=== PATIENT | male | born 1940 | race American Indian/Alaskan Native ===

== ENCOUNTER 2017-05-21 09:36 | Emergency (ER) | payer MEDICARE ==
[~2017-05-21 09:36] MED LIST: ASPI-1005 PO; CHOL100018 PO; COQ PO; GABA-531 PO; LOSA50TA37 PO; METO-408 PO; OMEG-108 PO; SIMV40TA59 PO; VITAMIN B 12 PO; [UNRECOGNIZED DRUG - OTHER] PO
[2017-05-21 10:03] LABS: BASOPHILS % (AUTO) 0.6 % (0.0-5.0); HEMATOCRIT 44.5 % (42-54); LYMPHOCYTES % (AUTO) 18.5 % (21.0-51.0); MEAN CORPUSCULAR HEMOGLOBIN 29.1 pg (27.0-33.0); MEAN CORPUSCULAR HGB CONC 33.9 g/dL (32.0-36.0); MEAN CORPUSCULAR VOLUME 85.8 fL (79-99); MONOCYTES % (AUTO) 9.9 % (3.0-13.0); PLATELET COUNT (AUTO) 231 K/uL (130-400); RED BLOOD CELL COUNT(AUTO) 5.19 MIL/uL (4.50-6.20); WHITE BLOOD COUNT (AUTO) 7.8 K/uL (4.8-10.8)
[2017-05-21 10:10] LABS: CREATININE 1.4 mg/dL (0.5-1.5); POTASSIUM 3.9 mmol/L (3.5-5.1)
[2017-05-21 10:12] LABS: INR 0.95 (0.85-1.15)
[2017-05-21 10:14] LABS: ALBUMIN 3.9 g/dL (3.5-5.0); BILIRUBIN,TOTAL 0.7 mg/dL (0.2-1.0); TOTAL PROTEIN, SERUM 7.6 g/dL (6.0-8.3)
[2017-05-21] MEDS ORDERED: HYDRALAZINE HCL 20 MG/ML VIAL ONE (10:30)
[2017-05-21 10:38] LABS: RAPID GROUP A STREP NEGATIVE (NEGATIVE)
[2017-05-21 10:44] LABS: APPEARANCE,URINE CLEAR (CLEAR); BILIRUBIN,URINE NEGATIVE (NEGATIVE); COLOR,URINE YELLOW (YELLOW); GLUCOSE, URINE (UA) NEGATIVE (NEGATIVE); KETONES,URINE NEGATIVE (NEGATIVE); LEUKOCYTE ESTERASE ,URINE NEGATIVE (NEGATIVE); NITRATE,URINE NEGATIVE (NEGATIVE); OCCULT BLOOD,URINE NEGATIVE (NEGATIVE); PH,URINE 6.5 (5.0-8.0); PROTEIN,URINE NEGATIVE (NEGATIVE); UROBILINOGEN,URINE 0.2 mg/dL (0.2-1.0)
[2017-05-21 11:09] LABS: B-TYPE NATRIURETIC PEPTIDE 38 pg/mL (0-100)
== END 2017-05-21 12:31 | disposition home or self-care (01) ==
LOC: EDH 09:36
DX: M94.0 Chondrocostal junction syndrome [Tietze] (principal); R07.89 Other chest pain; F41.9 Anxiety disorder, unspecified; I10 Essential (primary) hypertension; I25.810 Atherosclerosis of coronary artery bypass graft(s) without angina pectoris; E78.00 Pure hypercholesterolemia, unspecified; Z79.899 Other long term (current) drug therapy; Z95.1 Presence of aortocoronary bypass graft; Z87.891 Personal history of nicotine dependence; Z98.890 Other specified postprocedural states
CPT/HCPCS: 36415; 71045; 80053; 81003; 83605; 83690; 83880; 84484 ×2; 85025; 85610; 85730; 87804 ×2; 87880; 93005; 96374; 99285; J0360

== ENCOUNTER → 2018-02-13 | Outpatient (CLI) | payer MEDICARE ==
[~2018-02-13] MED LIST changes: +LOSA50TA25 PO; -LOSA50TA37 PO
== END | disposition home or self-care (01) ==
LOC: RAH 08:39
PROVIDERS: ATTEND Internal Medicine Endocrinology, Diabetes & Metabolism
DX: E04.2 Nontoxic multinodular goiter (principal); Z72.89 Other problems related to lifestyle
CPT/HCPCS: 76536

== ENCOUNTER → 2018-05-10 | Outpatient (CLI) | payer MEDICARE ==
[~2018-05-10] MED LIST changes: -LOSA50TA25 PO; +LOSA50TA64 PO
== END | disposition home or self-care (01) ==
LOC: RAH 07:34
PROVIDERS: ATTEND Family Medicine
DX: I12.9 Hypertensive chronic kidney disease with stage 1 through stage 4 chronic kidney disease, or unspecified chronic kidney disease (principal); N18.3 Chronic kidney disease, stage 3 (moderate); N28.1 Cyst of kidney, acquired
CPT/HCPCS: 76770; 93975

== ENCOUNTER → 2019-02-28 | Outpatient (CLI) | payer MEDICARE | END | disposition home or self-care (01) | LOC: SHCH 11:23 | PROVIDERS: ATTEND Internal Medicine Cardiovascular Disease | DX: I08.0 Rheumatic disorders of both mitral and aortic valves (principal); R01.1 Cardiac murmur, unspecified | CPT/HCPCS: 93306 ==

== ENCOUNTER → 2019-03-02 | Outpatient (CLI) | payer MEDICARE | END | disposition home or self-care (01) | LOC: SHCH 12:39 | PROVIDERS: ATTEND Internal Medicine Cardiovascular Disease | DX: I65.23 Occlusion and stenosis of bilateral carotid arteries (principal); I73.9 Peripheral vascular disease, unspecified | CPT/HCPCS: 93880; 93925 ==

== ENCOUNTER → 2020-03-11 | Outpatient (CLI) | payer MEDICARE | END | disposition home or self-care (01) | LOC: SHCH 11:22 | PROVIDERS: ATTEND Internal Medicine Cardiovascular Disease | DX: I51.7 Cardiomegaly (principal); I35.0 Nonrheumatic aortic (valve) stenosis | CPT/HCPCS: 93306; 93356 ==

== ENCOUNTER → 2020-03-13 | Outpatient (CLI) | payer MEDICARE ==
[~2020-03-13] MED LIST changes: +REGADENOSON 0.4 MG/5 ML PF SYG IVP SCH
== END | disposition home or self-care (01) ==
LOC: SHCH 08:29
PROVIDERS: ATTEND Internal Medicine Cardiovascular Disease
DX: I10 Essential (primary) hypertension (principal); I25.810 Atherosclerosis of coronary artery bypass graft(s) without angina pectoris
CPT/HCPCS: 78452; 93017; 96374; A9500 ×2; J2785

== ENCOUNTER → 2021-04-21 | Outpatient (CLI) | payer MEDICARE ==
[~2021-04-21] MED LIST changes: -REGADENOSON 0.4 MG/5 ML PF SYG IVP SCH
== END | disposition home or self-care (01) ==
LOC: SHCH 10:48
PROVIDERS: ATTEND Internal Medicine Cardiovascular Disease
DX: I08.0 Rheumatic disorders of both mitral and aortic valves (principal); I11.9 Hypertensive heart disease without heart failure; E78.5 Hyperlipidemia, unspecified; Z95.1 Presence of aortocoronary bypass graft
CPT/HCPCS: 93306

== ENCOUNTER → 2022-08-07 | Outpatient (CLI) | payer MEDICARE ==
[~2022-08-07] MED LIST changes: +REGADENOSON 0.4 MG/5 ML PF SYG IVP SCH
== END | disposition home or self-care (01) ==
LOC: SHCH 10:41
PROVIDERS: ATTEND Internal Medicine Cardiovascular Disease
DX: I35.0 Nonrheumatic aortic (valve) stenosis (principal); I11.9 Hypertensive heart disease without heart failure; I25.119 Atherosclerotic heart disease of native coronary artery with unspecified angina pectoris
CPT/HCPCS: 93306

== ENCOUNTER → 2022-08-10 | Outpatient (CLI) | payer MEDICARE ==
[~2022-08-10] MED LIST changes: +REGADENOSON 0.4 MG/5 ML PF SYG IVP ONE; -REGADENOSON 0.4 MG/5 ML PF SYG IVP SCH
== END | disposition home or self-care (01) ==
LOC: SHCH 07:34
PROVIDERS: ATTEND Internal Medicine Cardiovascular Disease
DX: I25.119 Atherosclerotic heart disease of native coronary artery with unspecified angina pectoris (principal)
CPT/HCPCS: 78452; 96374; 93017; J2785; A9500 ×2

== ENCOUNTER → 2023-07-25 | Outpatient (CLI) | payer MEDICARE ==
[~2023-07-25] MED LIST changes: -REGADENOSON 0.4 MG/5 ML PF SYG IVP ONE
== END | disposition home or self-care (01) ==
LOC: SHCH 10:28
PROVIDERS: ATTEND Internal Medicine Cardiovascular Disease
DX: I08.0 Rheumatic disorders of both mitral and aortic valves (principal); R06.00 Dyspnea, unspecified; I48.91 Unspecified atrial fibrillation
CPT/HCPCS: 93306

== ENCOUNTER → 2023-07-27 | Outpatient (CLI) | payer MEDICARE | END | disposition home or self-care (01) | LOC: SHCH 10:29 | PROVIDERS: ATTEND Internal Medicine Cardiovascular Disease | DX: I70.203 Unspecified atherosclerosis of native arteries of extremities, bilateral legs (principal); I65.23 Occlusion and stenosis of bilateral carotid arteries; R09.89 Other specified symptoms and signs involving the circulatory and respiratory systems; I25.10 Atherosclerotic heart disease of native coronary artery without angina pectoris; R07.89 Other chest pain; I10 Essential (primary) hypertension; E78.5 Hyperlipidemia, unspecified; R06.00 Dyspnea, unspecified; R06.02 Shortness of breath | CPT/HCPCS: 93880; 93925 ==

== ENCOUNTER → 2023-08-10 | Outpatient (CLI) | payer MEDICARE ==
[~2023-08-10] VITALS: Ht 177.8 cm; Wt 93.4 kg
[~2023-08-10] MED LIST changes: +ASPI-1197 PO; +CYAN-106 PO; +FAMO-136 PO; +METO25TA6 PO; +OMEG100033 PO; +SIMV-46 PO; +UBID200C18 PO; +VITAMIN D3 PO
[2023-08-10 10:33] LABS: BASOPHILS # (AUTO) 0.07 K/uL (0.00-0.20); BASOPHILS % (AUTO) 0.8 % (0.0-5.0); EOSINOPHILS # (AUTO) 0.58 K/uL (0.00-0.70); EOSINOPHILS % (AUTO) 6.6 % (0.0-8.0); HEMATOCRIT 45.9 % (42-54); IMMATURE GRANULOCYTE ABSOLUTE 0.04 K/uL (0-1); LYMPHOCYTES # (AUTO) 1.3 K/uL (1.0-4.8); LYMPHOCYTES % (AUTO) 14.9 % (21.0-51.0); MEAN CORPUSCULAR HEMOGLOBIN 27.8 pg (27.0-33.0); MEAN CORPUSCULAR HGB CONC 32.2 g/dL (32.0-36.0); MEAN CORPUSCULAR VOLUME 86.3 fL (79-99); MONOCYTES % (AUTO) 11.7 % (3.0-13.0); NEUTROPHILS # (AUTO) 5.7 K/uL (1.8-7.7); NEUTROPHILS % (AUTO) 65.5 % (40.0-77.0); PLATELET COUNT (AUTO) 325 K/uL (130-400); RED BLOOD CELL COUNT(AUTO) 5.32 MIL/uL (4.50-6.20); RED CELL DISTRIBUTION WIDTH 14.6 % (11.0-15.5); WHITE BLOOD COUNT (AUTO) 8.8 K/uL (4.8-10.8)
[2023-08-10 10:42] LABS: APPEARANCE,URINE CLEAR (CLEAR); BILIRUBIN,URINE NEGATIVE (NEGATIVE); COLOR,URINE YELLOW (YELLOW); GLUCOSE, URINE (UA) NEGATIVE (NEGATIVE); KETONES,URINE NEGATIVE (NEGATIVE); LEUKOCYTE ESTERASE ,URINE 75 Leu/uL (NEGATIVE); NITRATE,URINE 2+ (NEGATIVE); OCCULT BLOOD,URINE NEGATIVE (NEGATIVE); PROTEIN,URINE NEGATIVE (NEGATIVE); UROBILINOGEN,URINE 0.2 mg/dL (0.2-1.0)
[2023-08-10 10:43] LABS: INR 0.95 (0.85-1.15); PROTHROMBIN TIME 11.2 SEC (9.6-11.6)
[2023-08-10 10:44] LABS: CREATININE 1.4 mg/dL (0.5-1.3); POTASSIUM 4.2 mmol/L (3.5-5.1)
[2023-08-10 10:45] VITALS: BP 182/90; PULSE 71; RESP 18
[2023-08-10 10:45] LABS: PARTIAL THROMBOPLASTIN TIME 29.6 SEC (26.3-35.5)
[2023-08-10 10:46] LABS: ADD UA MICROSCOPIC YES
[2023-08-10 10:50] LABS: BACTERIA,URINE RARE /HPF (None Seen); MUCUS,URINE RARE LPF (None Seen); SQUAMOUS EPITHELIAL CELL,UR RARE /HPF (0-2)
[2023-08-10 11:09] LABS: B-TYPE NATRIURETIC PEPTIDE 139 pg/mL (0-100)
== END | disposition home or self-care (01) ==
LOC: EDSTATUS 09:00 → DAH 10:00
PROVIDERS: ATTEND Internal Medicine Cardiovascular Disease
DX: Z01.818 Encounter for other preprocedural examination (principal); I25.10 Atherosclerotic heart disease of native coronary artery without angina pectoris; I49.1 Atrial premature depolarization; R00.1 Bradycardia, unspecified; I48.91 Unspecified atrial fibrillation; Z79.899 Other long term (current) drug therapy
CPT/HCPCS: 36415; 71045; 80048; 81001; 83880; 85025; 85610; 85730; 87088; 93005

== ENCOUNTER → 2023-08-18 | Outpatient (CLI) | payer MEDICARE ==
[~2023-08-18] MED LIST changes: -ASPI-1005 PO; -CHOL100018 PO; -COQ PO; -GABA-531 PO; +IOHEXOL 350 MG/ML 100ML INFUS..BTL IV ONE; -METO-408 PO; -OMEG-108 PO; -SIMV40TA59 PO; -VITAMIN B 12 PO
== END | disposition home or self-care (01) ==
LOC: RAH 11:22
PROVIDERS: ATTEND Family Medicine
DX: R91.8 Other nonspecific abnormal finding of lung field (principal); I25.10 Atherosclerotic heart disease of native coronary artery without angina pectoris; J44.9 Chronic obstructive pulmonary disease, unspecified; M47.815 Spondylosis without myelopathy or radiculopathy, thoracolumbar region; M21.70 Unequal limb length (acquired), unspecified site; Z90.49 Acquired absence of other specified parts of digestive tract; C34.90 Malignant neoplasm of unspecified part of unspecified bronchus or lung; M79.661 Pain in right lower leg
CPT/HCPCS: 71270; 93971; Q9967

== ENCOUNTER → 2024-07-13 | Outpatient (CLI) | payer MEDICARE ==
[~2024-07-13] MED LIST changes: -IOHEXOL 350 MG/ML 100ML INFUS..BTL IV ONE
== END | disposition home or self-care (01) ==
LOC: SHCH 13:08
PROVIDERS: ATTEND Internal Medicine Cardiovascular Disease
DX: I87.2 Venous insufficiency (chronic) (peripheral) (principal); R60.9 Edema, unspecified
CPT/HCPCS: 93970

== ENCOUNTER 2024-08-11 09:51 | Emergency (ER) | payer MEDICARE ==
[~2024-08-11] VITALS: Ht 177.8 cm; Wt 86.2 kg
[2024-08-11] MEDS: TETRACAINE HCL 0.5% 4 ML OPHTH SOLN OP ONE (10:24)
[2024-08-11] MEDS: acetaMINOPHEN 500 MG TABLET PO ONE (10:30)
--- NOTE | 2024-08-11 10:51 | NUR ---
administered franca lens to the left eye to perform irrigation. patient tolerated well. at bedside.
[2024-08-11] MEDS ORDERED: MOXI3DRO12 OP (11:22)
--- NOTE | 2024-08-11 11:22 | ERN ---
General Chief Complaint: Eye Problems Stated Complaint: EYE PAIN Time Seen by MD: 10:05 Source: patient History of Present Illness Initial Comments THIS IS A AN 84-YEAR-OLD MALE COMING IN COMPLAINING OF LEFT EYE DISCOMFORT. PATIENT STATES HE WAS APPLYING A TOPICAL ANTIBIOTIC SOME OF IT WENT INTO HIS EYE IN HIS HAVING DISCOMFORT FOR ABOUT 36 HOURS. PATIENT HAS BEEN RINSING THE EYE BUT HAS NOT FOUND ANY RELIEF. Allergies: Coded Allergies: No Known Allergies (Unverified Allergy, Unknown, 08/10/23) Home Meds Reported Medications [Vitamin D3] No Conflict Check, 1 TAB PO DAILY 08/10/23 Ubidecarenone (Co Q-10) 200 Mg Capsule, 200 MG PO DAILY, CAP 08/10/23 Cyanocobalamin (Vitamin B-12) (Vitamin B12) 1,000 Mcg Tablet, 1000 MCG PO DAILY, TAB 08/10/23 Aspirin (Aspirin) 81 Mg Tab.chew, 81 MG PO HS, TAB.CHEW 08/10/23 [place]-3/Dha/Epa/Fish Oil (Fish Oil 1,000 mg Softgel) 1,000 Mg (120 Mg-180 Mg) Capsule, 1000 MG PO DAILY, CAP 08/10/23 [Triclor] No Conflict Check, 145 MG PO HS 08/10/23 Famotidine (Pepcid) 20 Mg Tablet, 20 MG PO HS, TAB 08/10/23 Losartan Potassium (Losartan Potassium) 50 Mg Tablet, 50 MG PO DAILY, TAB 08/10/23 Metoprolol Tartrate (Metoprolol Tartrate) 25 Mg Tablet, 25 MG PO BID, TAB 08/10/23 Simvastatin (Simvastatin) 40 Mg Tablet, 40 MG PO HS, TAB 08/10/23 Past Medical History Past Medical History: Other Medical History Other: LUNG CANCER Past Surgical History: CABG, Other Surgical History Other: SPINAL SURGERY ROS Dictation CONSTITUTIONAL: NO CHILLS, NO FEVER, NO WEAKNESS, NO DIAPHORESIS, NO MALAISE. HEAD/FACE: NO SIGNS OF TRAUMA. EENT: EYE PAIN, BLURRED VISION, NO TEARING, NO DOUBLE VISION, NO EAR PAIN, NO EAR DISCHARGE, NO NOSE PAIN, NO NASAL CONGESTION, NO THROAT PAIN, NO THROAT SWELLING, NO MOUTH PAIN. RESPIRATORY: NO COUGH, NO ORTHOPNEA, NO SOB, NO STRIDOR, NO WHEEZING. CARDIOVASCULAR: NO CHEST PAIN, NO EDEMA, NO PALPITATIONS, NO SYNCOPE. GASTROINTESTINAL/ABDOMINAL: NO ABDOMINAL PAIN, NO CONSTIPATION, NO DIARRHEA, NO NAUSEA, NO VOMITING. GENITOURINARY: NO ABNORMAL DISCHARGE, NO DYSURIA, NO FREQUENT URINATION, NO HEMATURIA. NO COMPLAINTS OF PAIN IN THE GENITALS. MUSCULOSKELETAL: NO BACK PAIN, NO GOUT, NO JOINT PAIN, NO JOINT SWELLING, NO MUSCLE PAIN, NO MUSCLE STIFFNESS, NO NECK PAIN. INTEGUMENTARY: NO CHANGE IN COLOR, NO CHANGE IN HAIR/NAILS, NO DRYNESS, NO LESION, NO LUMPS, NO RASH. NEUROLOGICAL/PSYCH: NO ANXIETY, NOT DEPRESSED, NO EMOTIONAL PROBLEM, NO HEADACHE, NO NUMBNESS, NO PRE-EXISTING DEFICIT, NO HISTORY OF SEIZURES, NO TREMORS, NO WEAKNESS. HEMATOLOGIC/LYMPHATIC: NOT ANEMIC, NO HISTORY OF BLOOD CLOTS, NO APPARENT BLEEDING, NO BRUISING, GLANDS NOT SWOLLEN. ALL SYSTEMS NEGATIVE, EXCEPT NOTED. Physical Exam Physical Exam Dictation VITAL SIGNS: REVIEWED. GENERAL APPEARANCE: ALERT, ORIENTED X3, NO ACUTE DISTRESS, OBESE. HEAD AND FACE: NON-TRAUMATIC. EYES: PERRL, CONJUNCTIVAS IRRITATION, EYELID NO TRAUMA, ANTERIOR CHAMBER CLEAR. EARS: PINNAS INTACT AND NO SIGNS OF TRAUMA OR ERYTHEMA. EAR CANALS CLEAR AND NO DISCHARGE. TMS NO ERYTHEMA. NOSE: NO DISCHARGE, NO BLEEDING. OROPHARYNX: MOUTH NORMAL, TEETH NO CARIES, TONGUE PINK. PHARYNX CLEAR, NO ERYTHEMA. TONSILS NO EXUDATES, NO ABSCESSES NOTED. MUCOUS MEMBRANE MOIST. NECK: SUPPLE, NON-TENDER, NO THYROMEGALY, NO MASSES, NO JVD, NO BRUITS. BREAST: DEFERRED. CHEST: NO TENDERNESS, NO CREPITUS, NO PARADOXICAL MOVEMENT, NO RETRACTIONS. LUNGS: CLEAR, WELL-VENTILATED, SYMMETRIC, NO RALES, NO WHEEZING, NO RHONCHI, NO STRIDOR, GOOD BREATH SOUNDS BILATERALLY. HEART: REGULAR RATE, REGULAR RHYTHM, NO MURMUR, NO GALLOPS. VASCULAR: NO PERIPHERAL EDEMA. ABDOMEN: SOFT, POSITIVE BOWEL SOUNDS, NONDISTENDED, NO GUARDING, NONTENDER, NO REBOUND, NO MASSES NO HEPATOMEGALY, NO SPLENOMEGALY, NO LANE'S SIGN, NO HERNIAS. RECTAL: DEFERRED. GENITAL: DEFERRED. NEUROLOGICAL: NORMAL SPEECH, GROSS MOTOR FUNCTION INTACT, GROSS SENSORY FUNCTION INTACT. MUSCULOSKELETAL: NECK NONTENDER, FULL RANGE OF MOTION, BACK NONTENDER, FULL RANGE OF MOTION. EXTREMITIES: NONTENDER, FULL RANGE OF MOTION. SKIN: COLOR PINK, DRY, NO TURGOR, NO RASH, NO LACERATIONS, NO ABRASIONS, NO CONTUSIONS. LYMPHATICS: DEFERRED. Results Laboratory and Microbiology Labs Reviewed?: Yes MDM MDM: DIFFERENTIAL DIAGNOSIS: LEFT EYE CHEMICAL CONJUNCTIVITIS, CONJUNCTIVITIS, RATIONALE: TESTS CONSIDERED AND ORDERED SECONDARY TO SHARED DECISION MAKING INCLUDE: PREVIOUS OUTSIDE RECORDS REVIEWED: OLD ER VISITS. RISK OF COMPLICATION AND/OR MORBIDITY OR MORTALITY OF PATIENT MANAGEMENT: NONE PATIENT IS A AN 84-YEAR-OLD MALE COMING IN TO BE EVALUATED FOR LEFT EYE DISCOMFORT. PATIENT HAD APPLIED A TOPICAL ANTIBIOTIC ON ACCIDENT. PATIENT'S EYE WAS RINSED USING A KAREN LENS TOPICAL ANESTHETICS WERE APPLIED PATIENT STATES HE FEELS MUCH BETTER WILL BE DISCHARGED IN STABLE CONDITION WITH A DIAGNOSIS OF CHEMICAL CONJUNCTIVITIS. ED Course Orders Procedure Category Date Status Time Tetracaine Hcl PHA 08/11/24 Complete (Pontocaine 0.5% 11:00 Acetaminophen 500mg PHA 08/11/24 Complete Tab (Tylenol 500mg T 10:30 Current Medications Medications (Trade) Dose Ordered Sig/Quoc Route PRN Reason Start Time Stop Time Status Last Admin Dose Admin Acetaminophen (TYLenol 500MG TAB) 1,000 mg ONCE ONCE PO 08/11/24 10:30 08/11/24 10:31 DC 08/11/24 10:30 Tetracaine HCl (Pontocaine 0.5% Ophth Soln) 2 DROP OP ONCE ONCE ONCE OP 08/11/24 11:00 08/11/24 11:01 DC 08/11/24 10:24 Vital Signs Date Time Temp Pulse Resp B/P (MAP) Pulse Ox O2 Delivery O2 Flow Rate FiO2 08/11/24 09:52 98.1 92 16 140/84 97 Room Air 0 DX & DISP Disposition: Discharge Departure Impression: Primary Impression: Chemical conjunctivitis Condition: Stable Scripts Moxifloxacin HCl (Moxifloxacin) 0.5 % Drops 1 DROP OP TID for 7 Days, #3 ML 0 Refills Prov: COSME MCCOLLUM MD 08/11/24 Additional Instructions: FOLLOW-UP WITH PRIMARY CARE PROVIDER IN 1 TO 2 DAYS. TAKE MEDICATIONS DIRECTED HERE IN THE EMERGENCY ROOM. OKAY TO CONTINUE HOME MEDICATIONS UNLESS OTHERWISE DISCUSSED DURING YOUR VISIT IN THE EMERGENCY ROOM TODAY. RETURN TO YOUR NEAREST EMERGENCY ROOM IF SYMPTOMS WORSEN OR IF THERE IS NO IMPROVEMENT. CALL 911 IF YOU NEED IMMEDIATE ASSISTANCE. TAKE TYLENOL [id number] NEEDED AND IF NO CONTRAINDICATIONS ARE PRESENT. INCREASE ORAL HYDRATION. A WOUND CULTURE OR URINE CULTURE WAS ORDERED HERE IN THE EMERGENCY ROOM DEPARTMENT PLEASE FOLLOW-UP WITH PRIMARY CARE PROVIDER AND ADVISE THEM TO GET REPEAT PORTS FROM OUR FACILITY. IF YOU HAD ANY FREDRICK WRAP/SPLINTS THAT WERE APPLIED HERE, PLEASE DO NOT REMOVE THEM UNTIL YOU SEE YOUR PRIMARY CARE OR SPECIALTY. REFERRALS: Referrals: CARLOS GONZALES MD (PCP) Time of Disposition: 11:14 COSME MCCOLLUM MD August 11, 2024 11:22
[2024-08-11 11:24] VITALS: BP 137/80; PULSE 85; RESP 16; TEMP 98.1; O2SAT 97
--- NOTE | 2024-08-11 13:29 | NUR ---
PT CALLED IN REQUESTING PAIN MEDICATION FOR HIS LT EYE. HE STATES HE WAS PRESCRIBED ABX AND NO PAIN MEDS. WE CALLED PRESRIPTION IN TO PHARMACY AT [facility] FOR MAXITROL EYE OINTMENT TO LT EYE, APPLY SMALL AMOUNT TO LT EYE 4 TIMES A DAY FOR 5 DAYS.
== END 2024-08-11 11:27 | disposition home or self-care (01) ==
LOC: EDH 09:51
DX: H10.212 Acute toxic conjunctivitis, left eye (principal); Z79.82 Long term (current) use of aspirin; Z79.899 Other long term (current) drug therapy; Z85.118 Personal history of other malignant neoplasm of bronchus and lung; Z95.1 Presence of aortocoronary bypass graft; Z98.890 Other specified postprocedural states
CPT/HCPCS: 99284

== ENCOUNTER 2025-03-14 07:37 | Day surgery (SDC) | payer MEDICARE ==
--- NOTE | 2025-03-12 12:06 | EKG ---
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
[2025-03-12 12:13] LABS: IMMATURE GRANULOCYTE ABSOLUTE 0.05 K/uL (0-1); NUCLEATED RED BLOOD CELLS 0.0 % (0.0-0.19); PLATELET COUNT (AUTO) 274 K/uL (130-400); RED BLOOD CELL COUNT(AUTO) 5.26 MIL/uL (4.50-6.20); RED CELL DISTRIBUTION WIDTH 14.7 % (11.0-15.5); WHITE BLOOD COUNT (AUTO) 6.2 K/uL (4.8-10.8)
[2025-03-12 12:22] LABS: CREATININE 1.4 mg/dL (0.5-1.3); GLOMERULAR FILTR. RATE CALC 50.0 mL/min (>90); GLUCOSE,RANDOM 92.0 mg/dL (70-105); INR 1.02 (0.85-1.15); SODIUM SERUM 141.0 mmol/L (136-145); UREA NITROGEN, BLOOD 19.0 mg/dL (7-18)
[2025-03-12 12:52] LABS: ADD UA MICROSCOPIC YES; APPEARANCE,URINE CLEAR (CLEAR); GLUCOSE, URINE (UA) NEGATIVE (NEGATIVE); LEUKOCYTE ESTERASE ,URINE SMALL Leu/uL (NEGATIVE); NITRATE,URINE POSITIVE (NEGATIVE); OCCULT BLOOD,URINE NEGATIVE (NEGATIVE)
[2025-03-12 12:53] LABS: SQUAMOUS EPITHELIAL CELL,UR Few /HPF (0-2)
[2025-03-12 12:54] VITALS: BP 146/82; PULSE 78; RESP 12; TEMP 97.3
--- NOTE | 2025-03-12 19:07 | HMCIMG ---
EXAM: XR Chest, 1 View. CLINICAL HISTORY: Pre-Op. COMPARISON: None provided. FINDINGS: LUNGS: Blunting of right CP angle with basal collapse consolidation seen. Thick fibrotic band/scarring along the right upper lobe with a peripheral small cavity noted adjacent to the lateral margin of the fibrotic band. Trachea is shifted towards right. Bilateral denzel are bulky. PLEURAL SPACES: Right pleural effusion. Blunt left CP angle, secondary to pleural thickening/small pleural effusion. No pneumothorax. HEART: The heart size is normal. Aortic knob calcinosis seen. BONES: Midline sternotomy sutures are seen. ACDF along the lower cervical spine. IMPRESSION: 1. Right pleural effusion with basal atelectasis. 2. Thick fibrotic band/scarring along the right upper lobe with a small peripheral cavity adjacent to its lateral margin. 3. Bulky bilateral denzel. 4. Aortic knob calcification. 5. Postsurgical changes of prior midline sternotomy and lower cervical ACDF. /[place]
--- NOTE | 2025-03-13 14:52 | NUR ---
REPORT REPORTED UA/URINE CX/CREAT/CXR TO AKUA ANDERSON NP. RECEIVED ORDERS FOR ROCEPHIN 1GM IVP X1 UPON ARRIVAL IN AM.
[2025-03-14] VITALS (10 sets, daily range): BP systolic 112–139; BP diastolic 64–74; PULSE 75–84; RESP 14–15; TEMP 97.3–97.8
[~2025-03-14] VITALS: Ht 177.8 cm; Wt 88.8 kg
[2025-03-14] MEDS: 0.9%NACL 1000ML 1,000 ML IV ONE (09:06)
[2025-03-14] MEDS ORDERED: HEParin-NS 1,000 UNIT/500 ML 500 ML IV ONE (11:48)
[2025-03-14] MEDS ORDERED: MIDAZOLAM HCL 1 MG/ML 2ML VIAL ONE ×3 (11:51→13:15)
[2025-03-14] MEDS ORDERED: SODIUM BICARB 50MEQ 50ML VIAL 50 ML ONE (13:13)
[2025-03-14] MEDS ORDERED: LIDOCAINE HCL 400MG/20ML VIAL ONE (13:13)
[2025-03-14] MEDS ORDERED: NITROGLYCERIN 50MG VIAL ONE (13:15)
[2025-03-14] MEDS ORDERED: HEParin-NS 1,000 UNIT/500 ML 1,500 ML IV ONE (13:15)
[2025-03-14] MEDS ORDERED: IOHEXOL 350 MG/ML 100ML INFUS..BTL IV ONE (13:15)
[2025-03-14] MEDS ORDERED: GLUCAGON 1MG KIT 1 MG ML IM PRN (13:30)
[2025-03-14] MEDS ORDERED: 0.9%NACL 1000ML 1,000 ML IV SCH (13:30)
[2025-03-14] MEDS ORDERED: DEXTROSE 50%-WATER 50 ML DISP.SYRIN IV PRN (13:30)
--- NOTE | 2025-03-14 14:06 | CCATH ---
PROCEDURES: * Right and left heart catheterization. * Selective right and left coronary arteriogram. * Multiple saphenous vein graft angiogram. * Subselective left internal mammary artery angiogram. * Conscious sedation for approximately 60 minutes. INDICATIONS: * Severe coronary artery disease. * Status post remote coronary artery bypass surgery. * Aortic stenosis. COMPLICATIONS: None. TOTAL CONTRAST ESTIMATE: Approximately 100 mL. DESCRIPTION OF PROCEDURE: The patient was taken to the cardiac catheterization lab after the appropriate operative consent was signed. He was prepped and draped in the usual fashion. After conscious sedation was administered, the right common femoral artery and common femoral vein regions were infiltrated with 2% Xylocaine without epinephrine. Ultrasound guidance was utilized and the right common femoral artery was cannulated as was the right common femoral vein. A 7-Ivorian sheath was advanced in the right common femoral vein in a retrograde fashion with a modified surgical technique. We utilized the 6 x 45 cm sheath in the right common femoral artery, advanced over an indwelling wire in a retrograde fashion with modified Seldinger technique. At this point, a multipurpose catheter was advanced and engaged in the ostium of the left anterior descending coronary artery. This was imaged in multiplane. The left anterior descending coronary artery was a large vessel that had a 50% lesion in its proximal portion. It gave rise to 2 sizable diagonals and then the LAD was 100% occluded after the first septal nuclear powerplant supervisor with non-visualization of the distal LAD by a nikolai injection. It is important to note that there was no circumflex observed off of the left anterior descending coronary artery imaging. At this point, the catheter was withdrawn and crossed the left ventricular cavity. Left ventricular end-diastolic pressure measurement was obtained. The [place]me had been advanced under fluoroscopic guidance with measurements obtained in the right atrium, right ventricle, PA, and pulmonary capillary wedge pressure positions. At this point, we were able to exchange the multipurpose catheter for a 5-Ivorian pigtail catheter. This was placed in the left ventricular cavity. Simultaneous measurements were obtained between the left ventricular end-diastolic pressure and the PA as well as the left ventricular end-diastolic pressure and the pulmonary capillary wedge pressure. The pressures were recorded and stored. There was no evidence of mitral stenosis based upon that information and there was no evidence of CHF. Cardiac output was performed. Measurements between the left ventricle and the aorta were also obtained as well as pullback measurements. The pressures were documented. An FR4 6-Ivorian catheter was then advanced and selectively engaged the right coronary artery. This imaged in multiplane identifying critical proximal stenosis with 100% occlusion of the proximal to mid portion of the RCA with non-visualization of the distal RCA. In imaging the right coronary artery, we were able to clearly see the circumflex coronary artery arising from the right coronary sinus and looping posteriorly giving rise to ongoing circumflex and a small branching obtuse marginal 1 and a very small distal OM. The obtuse marginal 1 was felt to be a 1-1.5 mm size. It had an 80% lesion in it. At this point, the right coronary artery catheter was then utilized and engaged in the saphenous vein graft to the right coronary artery, which was imaged identifying a patent small saphenous vein graft to the distal RCA with critical stenosis distal to the anastomosis and before the bifurcation to PDA and PLVB. There was antegrade flow into the PLVB and the PDA. The catheter was then withdrawn and engaged in the saphenous vein graft that presumably went to a diagonal that was 100% occluded. It was then engaged in the saphenous vein graft to the LAD, which was a large graft supplying a large LAD with brisk flow. The right coronary catheter was then engaged in the left subclavian artery and subselective imaging of the left internal mammary artery revealed to be atretic and occluded 100% in its mid segment. At this point, a right coronary bypass catheter was utilized and engaged in the saphenous vein graft, which was seen to supply a large PLVB with good flow. At this point, the procedure was completed, the patient tolerated it well. Angioseal was utilized after Perclose failure. The patient tolerated the procedure well and left cardiac catheterization lab in stable condition. FINAL IMPRESSION: The patient has: * Moderate aortic stenosis with low flow and low gradient. The cardiac output was 4.46. The peak gradient was measured at approximately 20. * Severe 3-vessel coronary artery disease. * Patent left internal mammary artery to the left anterior descending artery, saphenous vein graft to the posterolateral ventricular branch, saphenous vein graft to the distal right coronary artery. * Occluded left internal mammary artery and questionable occlusion of the saphenous vein graft presumably to the diagonal. * Preserved left ventricular systolic function by noninvasive studies. PLAN: Continue conservative medical management and continue to monitor the aortic stenosis status. TID: [id number] RECEIPT: [id number]
--- NOTE | 2025-03-14 18:40 | NUR ---
BOTH PT AND SPOUSE GIVEN VERBAL AND WRITTEN DISCHARGE INSTRUCTIONS IV REMOVED SITE ASYMPTOMATIC, PT TAKEN OUT VIA WHEELCHAIR SPOUSE DRIVING.
== END 2025-03-14 18:46 | disposition home or self-care (01) ==
LOC: DAH 07:37
PROVIDERS: ATTEND Internal Medicine Cardiovascular Disease
DX: I25.10 Atherosclerotic heart disease of native coronary artery without angina pectoris (principal); I35.0 Nonrheumatic aortic (valve) stenosis; E78.5 Hyperlipidemia, unspecified; I12.9 Hypertensive chronic kidney disease with stage 1 through stage 4 chronic kidney disease, or unspecified chronic kidney disease; N18.30 Chronic kidney disease, stage 3 unspecified; Z95.1 Presence of aortocoronary bypass graft; Z72.0 Tobacco use; Z98.890 Other specified postprocedural states; Z79.01 Long term (current) use of anticoagulants; Z79.899 Other long term (current) drug therapy
CPT/HCPCS: 80048; 83880; 85025; 85610; 85730; 87086 ×2; 81001; 36415; 71045; 93005; 93461; 99156; 99157 ×5; 85347 ×2; 87186; C1769 ×3; C1894 ×3; C1760 ×4; C1887; C1893; Q9965 ×2; J3010; J3490 ×3; J7030; J0696; J1644 ×3; J2250 ×3; Q9967; A4215; A4222; A4221; A4663; A4216; A4606; A4223 ×3